=== PATIENT | female | born 1960 | race Caucasian/White ===

== ENCOUNTER → 2019-04-29 | Outpatient (CLI) | payer OTHER ==
[~2019-04-29] MED LIST: CEP500 PO; DOCU-299 PO; FAMO-1 PO; IBU600 PO; LEVO50TA80 PO; LEVO75TA68 PO; LOR5/325 PO
--- NOTE | 2019-04-29 15:51 | RADIOLOGY IMAGING REPORT ---
FACILITY: [facility] - [place], [place] PATIENT NAME: Magalys Méndez : 1960 MR: [id number] V: [id number] EXAM DATE: ORDERING PHYSICIAN: MARICEL HERRERA TECHNOLOGIST: Location: [facility] - [place] Patient: Magalys Méndez : 1960 Visit/Account:[id number] Date of Sevice: 04/29/2019 DEXA Scan Clinical history: Postmenopausal. Comparison: DEXA scan from 10/29/2012. LUMBAR SPINE: The bone mineral density (BMD) measured from L1-L4 correlates with a Z-score of 1 and a T-score of -0 .7 which is Normal as defined by the World Health Organization. The corresponding risk of fracture i n the lumbar spine is 1-2 times increased compared with a young adult reference population. This duane ue has decrease by 15.4 % since the prior study. More than 5% change is considered significant. HIP: Bone mineral density (BMD) measured in the LEFT total hip region correlates with a Z-score 1.6 and a T-score of 0.4 which is normal as defined by the World Health Organization. The corresponding risk of fracture in the hip is Not i ncreased compared to a young adult reference population. This value has decrease by 8.1 % since the p rior study. More than 5% change is considered significant. T score left femoral neck -0.1 Bone mineral density (BMD) measured in the Femoral Neck region measures 1.020 g/cm?. IMPRESSION: 1. Lumbar spine: Normal. There has been 15.4% decrease in the bone mineral density since the previo us exam. 2. Left Total Hip: Normal. There has been 8.1% decrease in the bone mineral density since the previ ous exam. 3. Femoral Neck: Bone Mineral Density is 1.020 g/cm? The next DEXA scan of this patient should include the following sites: L1-L4 and the left hip. FRAX? WHO Fracture Risk Assessment Tool link: <http://www.shef.ac.uk/FRAX/tool.jsp?locationValue=9> PLEASE NOTE: 1) The World Health Organization defines low BMD as follows: T-score Normal > -1 Osteopenia < -1 and > -2.5 Osteoporosis < -2.5 without fractures Established osteoporosis < -2.5 with fractures 2) In general, you may wish to consider: Diagnosis Treatment Follow-up DEXA Normal BMD Prevention 2-3 years Osteopenia Prevention/therapy 1-2 years Osteoporosis Therapy Yearly 3) Fracture risk estimated from the T-score is more accurate for vertebral fractures (often spontane ous) than for hip fractures. Report Dictated By: Princess Eason MD at 04/29/2019 3:43 PM Report E-Signed By: rPincess Eason MD at 04/29/2019 3:44 PM WSN:[email or web address]
--- NOTE | 2019-04-30 08:37 | RADIOLOGY IMAGING REPORT ---
[place] [facility] [place] LILLIAM LYLES : [id number] MR: [id number] V: [id number] EXAM DATE: ORDERING PHYSICIAN: MARICEL HERRERA TECHNOLOGIST: Ruth Pompa PROCEDURE: BILATERAL DIGITAL SCREENING MAMMOGRAM WITH CAD ASSISTED INTERPRETATION & 3D TOMOSYNTHESIS. REASON FOR STUDY: Screening. FAMILY HISTORY OF BREAST CANCER: None. BREAST PROCEDURES/TREATMENTS: None. COMPARISON: 02/23/16, 10/29/14, 10/25/13. VIEWS OBTAINED: Bilateral 2D & 3D full field CC & MLO projections. BREAST DENSITY: There are scattered areas of fibroglandular density throughout the breasts. MAMMOGRAM FINDINGS: The parenchymal pattern has remained stable allowing for difference in mammographic technique & patient positioning. IMPRESSION: BIRADS 1: Negative. DIAGNOSTIC CATEGORY 1--NEGATIVE. RECOMMENDATIONS: ROUTINE MAMMOGRAM AND CLINICAL EVALUATION. Dictated by: Princess Eason M.D. on 04/29/2019 at 16:40 Transcribed by: FIX on 04/30/2019 at 8:06 Approved by: Princess Eason M.D. on 04/30/2019 at 8:34 [facility]
== END ==
LOC: MAMO 01:15
PROVIDERS: ATTEND Physician Assistant
DX: Z12.31 Encounter for screening mammogram for malignant neoplasm of breast (principal); N95.9 Unspecified menopausal and perimenopausal disorder
CPT/HCPCS: 77063; 77067; 77080